=== PATIENT | male | born 1940 | race Caucasian/White ===

== ENCOUNTER → 2017-08-14 | Outpatient (CLI) | payer OTHER | LOC: BMCIMAGING 11:19 | PROVIDERS: ATTEND Internal Medicine Rheumatology | DX: Z13.820 Encounter for screening for osteoporosis (principal); M85.89 Other specified disorders of bone density and structure, multiple sites ==

== ENCOUNTER → 2017-09-10 | Outpatient (CLI) | payer OTHER | LOC: BMCIMAGING 12:41 | PROVIDERS: ATTEND Internal Medicine | DX: M79.604 Pain in right leg (principal); M79.89 Other specified soft tissue disorders ==

== ENCOUNTER → 2017-11-13 | Outpatient (CLI) | payer OTHER | LOC: BMCIMAGING 14:01 | PROVIDERS: ATTEND Family Medicine | DX: M25.521 Pain in right elbow (principal) ==

== ENCOUNTER → 2018-02-11 | Outpatient (CLI) | payer OTHER | LOC: BMCIMAGING 09:47 → EDSTATUS 09:48 | PROVIDERS: ATTEND Orthopaedic Surgery | DX: Z47.1 Aftercare following joint replacement surgery (principal); Z96.651 Presence of right artificial knee joint; M89.8X6 Other specified disorders of bone, lower leg ==

== ENCOUNTER → 2018-03-02 | Outpatient (CLI) | payer OTHER | LOC: FIMAGING 09:25 | PROVIDERS: ATTEND Orthopaedic Surgery | DX: T84.032A Mechanical loosening of internal right knee prosthetic joint, initial encounter (principal); Z96.651 Presence of right artificial knee joint | CPT/HCPCS: 78315; A9503 ==

== ENCOUNTER 2018-04-05 11:28 | Observation (INO) | payer OTHER ==
--- NOTE | 2018-04-05 06:29 | PDIAF ---
- Diagnosis Diagnosis: failed right tka Code Status: Full Code - Medication Management Discharge Medications: Medications to Continue on Transfer Allopurinol [Allopurinol 300 MG (RX)] 300 mg PO DAILY 03/10/18 [Last Taken Unknown] Aspirin [Aspirin 81mg (*)] 81 mg PO DAILY 03/10/18 [Last Taken Unknown] Cholecalciferol Vit D3 [Vitamin D3 (*)] 1,000 units PO DAILY 03/10/18 [Last Taken Unknown] Ibuprofen [Motrin (*)] 200 mg PO DAILY PRN 03/10/18 [Last Taken Unknown] Losartan Potassium 100 mg PO DAILY 03/10/18 [Last Taken Unknown] Metoprolol Succinate Xr [Toprol Xl 100 mg (*)] 100 mg PO DAILY 03/10/18 [Last Taken Unknown] Pantoprazole Sodium [Protonix 40mg (*)] 40 mg PO DAILY 03/10/18 [Last Taken Unknown] Tamsulosin HCl [Flomax 0.4 MG (*)] 0.4 mg PO DAILY 03/10/18 [Last Taken Unknown] metFORMIN HCL [Glucophage 500 mg (*)] 500 mg PO DAILY 03/10/18 [Last Taken Unknown] predniSONE 4 mg PO DAILY 03/10/18 [Last Taken Unknown] Discharge Medications: Refer to the Discharge Home Medication list for PRN reason. - Orders Services needed: Physical Therapy Diet Recommendation: no restrictions on diet Diet Texture: Regular Texture Diet Activity/Weight Bearing Restrictions: wbat. rom as josep. keep dressing. if dressing becomes saturated, change daily. may shower without bandage. f/u at two weeks. seek attn for increasing pain, chest pain, shortness of breath, drainage or other focal complaint - Follow Up Care Current Providers and Referrals: Will Moreau MD [Primary Care Provider] -
--- NOTE | 2018-04-05 06:29 | PDHPUP ---
History & Physical Update H&P update statement: This history and physical update is based on an assessment of the patient which was completed after admission or registration (within 24 hours), but prior to the surgery/procedure. H&P update: no change in patient's condition since H&P completed
[~2018-04-05 11:28] MED LIST: BUPIVACAINE 0.5% 30 ML SDV ONE; NS IV ONE; ROPIVACAINE 0.2% 80 MG, EPINEPHrine 0.2 MG, KETOROLAC TROMETHAMINE 30 MG, morphINE 10 M... IU ONE; TRANEXAMIC ACID IV ONE
[2018-04-05] MEDS ORDERED: FAMOTIDINE 20 MG TAB PO ONE (11:42)
[2018-04-05] MEDS ORDERED: ACETAMINOPHEN 325 MG TAB PO ONE (11:42)
[2018-04-05] MEDS ORDERED: ceFAZolin 2 GM/SWFI 2 GM/20 ML SYR IVP ONE (11:42)
[2018-04-05] MEDS ORDERED: DEXAMETHASONE 4 MG/ML VIAL IVP ONE (11:42)
[2018-04-05] MEDS ORDERED: LR 1,000 ML IV ONE (12:06)
[2018-04-05] MEDS ORDERED: ceFAZolin 1 GM/5 ML SYR ONE ×2 (13:42→13:43)
--- NOTE | 2018-04-05 14:09 | PDANEPAE ---
ANE History of Present Illness RIGHT tka REVISION ANE Past Medical History - Cardiovascular History Hx Hypertension: Yes Hx Arrhythmias: No Hx Chest Pain: No Hx Coronary Artery / Peripheral Vascular Disease: No Hx CHF / Valvular Disease: No Hx Palpitations: No Cardiovascular History Comment: [place] monitors bp medications - Pulmonary History Hx COPD: No Hx Asthma/Reactive Airway Disease: No Hx Recent Upper Respiratory Infection: No Hx Oxygen in Use at Home: No Hx Sleep Apnea: No Sleep Apnea Screening Result - Last Documented: Positive Pulmonary History Comment: [place] triggers - Neurologic History Hx Cerebrovascular Accident: No Hx Seizures: No Hx Dementia: No - Endocrine History Hx Diabetes: Yes Endocrine History Comment: pre-diabetic - Renal History Hx Renal Disorders: Yes Renal History Comment: bph. frequency - Liver History Hx Hepatic Disorders: No - Neurological & Psychiatric Hx Hx Neurological and Psychiatric Disorders: No - Cancer History Hx Cancer: No - Congenital Disorder History Hx Congenital Disorders: No - GI History Hx Gastrointestinal Disorders: Yes Gastrointestinal History Comment: barretts esophagus- controlled with protonix. hx of egd 08/2017 - Other Health History Other Health History: wears glasses/ contacts. psoriasis- well controlled for quite awhile. polymyalgia rheumatica - Chronic Pain History Chronic Pain: Yes (right knee, PMR) - Surgical History Prior Surgeries: 2002 right tka. 2013 hernia repair. 10/2014 selma. hernia repair 1979 or 1980 ANE Review of Systems Review of systems is: negative Review of Systems: - Exercise capacity Exercise capacity: >=4 METS METS (RN): 4 METS ANE Patient History - Allergies Allergies/Adverse Reactions: quinapril [From Accupril] Allergy (Verified 04/05/18 11:51) photosensitive rash x1 2002 - Home Medications Home Medications: Allopurinol [Allopurinol 300 MG (RX)] 300 mg PO DAILY 03/10/18 [Last Taken 04/05 07:00] Aspirin [Aspirin 81mg (*)] 81 mg PO DAILY 03/10/18 [Last Taken Unknown] Cholecalciferol Vit D3 [Vitamin D3 (*)] 1,000 units PO DAILY 03/10/18 [Last Taken 03/29/18] Ibuprofen [Motrin (*)] 200 mg PO DAILY PRN 03/10/18 [Last Taken Unknown] Losartan Potassium 100 mg PO DAILY 03/10/18 [Last Taken 04/04/18] Metoprolol Succinate Xr [Toprol Xl 100 mg (*)] 100 mg PO DAILY 03/10/18 [Last Taken 04/05/18 07:00] Pantoprazole Sodium [Protonix 40mg (*)] 40 mg PO DAILY 03/10/18 [Last Taken 06/16 07:00] Tamsulosin HCl [Flomax 0.4 MG (*)] 0.4 mg PO DAILY 03/10/18 [Last Taken 23:00] metFORMIN HCL [Glucophage 500 mg (*)] 500 mg PO DAILY 03/10/18 [Last Taken 04/03] predniSONE 4 mg PO DAILY 03/10/18 [Last Taken 04/05/18 07:00] - NPO status NPO Status: no food or drink >8 hours NPO Since - Liquids (Date): 04/04/18 NPO Since - Liquids (Time): 04:00 NPO Since - Solids (Date): 04/04/18 NPO Since - Solids (Time): 23:00 - Anes Hx Anes Hx: no prior problems - Smoking Hx Smoking Status: Former smoker - Alcohol Use Alcohol Use: Occasionally (14/WK) - Family Anes Hx Family Anes Hx: none Family Hx Anesthesia Complications: none ANE Labs/Vital Signs - Vital Signs Vital Signs: reviewed preoperatively; see RN documention for details Blood Pressure: 144/97 Heart Rate: 67 Respiratory Rate: 16 O2 Sat (%): 95 Height: 175.26 cm Weight: 76.204 kg ANE Physical Exam - Airway Neck exam: FROM Mallampati Score: Class 2 Mouth exam: normal dental/mouth exam - Pulmonary Pulmonary: no respiratory distress - Cardiovascular Cardiovascular: regular rate and rhythym - ASA Status ASA Status: II ANE Anesthesia Plan Anesthesia Plan: spinal Regional Anesthesia: adductor canal FNB
[2018-04-05] MEDS ORDERED: MIDAZOLAM 2 MG/2 ML VIAL ONE (14:14)
[2018-04-05] MEDS ORDERED: MIDAZOLAM 2 MG/2 ML VIAL IVP ONE (14:19)
[2018-04-05] MEDS ORDERED: PROPOFOL/EMULSION 500 MG/50 ML BOTTLE IV ONE ×2 (14:29→15:49)
[2018-04-05] MEDS ORDERED: LIDOCAINE 2% 5 ML SDV ONE (14:29)
[2018-04-05] MEDS ORDERED: BUPIVACAINE 0.5% 30 ML SDV ONE (14:31)
[2018-04-05] MEDS ORDERED: METOCLOPRAMIDE 10 MG/2 ML VIAL IVP PRN (14:50)
[2018-04-05] MEDS ORDERED: diphenhydrAMINE 25 MG CAP PO PRN (14:50)
[2018-04-05] MEDS ORDERED: BISACODYL 10 MG SUPP PR PRN (14:50)
[2018-04-05] MEDS ORDERED: POLYETHYLENE GLYCOL 3350 17 GM PKT PO PRN (14:50)
[2018-04-05] MEDS ORDERED: TEMAZEPAM 15 MG CAP PO PRN (14:50)
[2018-04-05] MEDS ORDERED: CYCLOBENZAPRINE 10 MG TAB PO PRN (14:50)
[2018-04-05] MEDS ORDERED: ONDANSETRON 4 MG/2 ML VIAL IVP PRN ×2 (14:50→17:40)
[2018-04-05] MEDS ORDERED: PROMETHAZINE HCL 25 MG/ML INJ IVP PRN (14:50)
[2018-04-05] MEDS ORDERED: MAGNESIUM HYDROXIDE 30 ML UDCUP PO PRN (14:50)
[2018-04-05] MEDS ORDERED: oxyCODONE IR 5 MG TAB PO PRN (14:50)
[2018-04-05] MEDS ORDERED: DIPHENOXYLATE/ATROPINE LOMOTIL 1 TAB PO PRN (14:50)
[2018-04-05] MEDS ORDERED: PROMETHAZINE HCL 25 MG SUPPR PR PRN (14:50)
[2018-04-05] MEDS ORDERED: traMADol 50 MG TAB PO PRN (14:50)
[2018-04-05] MEDS ORDERED: LACTULOSE 20 GM/30 ML UDCUP PO PRN (14:50)
[2018-04-05] MEDS ORDERED: ONDANSETRON DISINTEGRATING 4 MG TAB PO PRN (14:50)
[2018-04-05] MEDS ORDERED: CALCIUM CHLORIDE 1 GM/10 ML INJ ONE (14:54)
[2018-04-05] MEDS ORDERED: THROMBIN (BOVINE) 5,000 UNIT VIAL TP ONE (14:54)
[2018-04-05] MEDS ORDERED: LR 1,000 ML IV SCH (15:00)
[2018-04-05] MEDS ORDERED: fentaNYL 100 MCG/2 ML INJ IVP PRN (17:40)
[2018-04-05] MEDS ORDERED: HYDROmorphONE/DILAUDID 2 MG/ML INJ IVP PRN (17:40)
[2018-04-05] MEDS ORDERED: ALBUTEROL 3 ML DEYVIAL IH PRN (17:40)
[2018-04-05] MEDS ORDERED: NALOXONE HCL 0.4 MG/ML INJ IVP PRN (17:40)
[2018-04-05] MEDS: TRANEXAMIC ACID 650 MG TAB PO SCH ×2 (19:35→23:33)
[2018-04-05] MEDS: SENNOSIDES/DOCUSATE SODIUM TAB PO SCH (20:24)
[2018-04-05] MEDS: ASPIRIN 325 MG TAB PO SCH (20:24)
[2018-04-05] MEDS: ACETAMINOPHEN 325 MG TAB PO SCH ×2 (20:37→23:33)
[2018-04-05] MEDS ORDERED: FAMOTIDINE 20 MG TAB PO SCH (21:00)
[2018-04-05] MEDS ORDERED: ceFAZolin 2 GM/DEXTROSE 100 ML IV SCH (22:00)
[2018-04-05] MEDS: ceFAZolin 2 GM/SWFI 2 GM/20 ML SYR IVP SCH (23:33)
[2018-04-06] MEDS: ACETAMINOPHEN 325 MG TAB PO SCH (06:09)
[2018-04-06] MEDS: TRANEXAMIC ACID 650 MG TAB PO SCH (06:09)
[2018-04-06] MEDS: ceFAZolin 2 GM/SWFI 2 GM/20 ML SYR IVP SCH (06:19)
--- NOTE | 2018-04-06 07:00 | PDIAF ---
- Diagnosis Diagnosis: failed right tka Code Status: Full Code - Medication Management Discharge Medications: Medications to Continue on Transfer Allopurinol [Allopurinol 300 MG (RX)] 300 mg PO DAILY 03/10/18 [Last Taken 04/05 07:00] Aspirin [Aspirin 81mg (*)] 81 mg PO DAILY 03/10/18 [Last Taken Unknown] Cholecalciferol Vit D3 [Vitamin D3 (*)] 1,000 units PO DAILY 03/10/18 [Last Taken 03/29/18] Ibuprofen [Motrin (*)] 200 mg PO DAILY PRN 03/10/18 [Last Taken Unknown] Losartan Potassium 100 mg PO DAILY 03/10/18 [Last Taken 04/04/18] Metoprolol Succinate Xr [Toprol Xl 100 mg (*)] 100 mg PO DAILY 03/10/18 [Last Taken 04/05/18 07:00] Pantoprazole Sodium [Protonix 40mg (*)] 40 mg PO DAILY 03/10/18 [Last Taken 06/16 07:00] Tamsulosin HCl [Flomax 0.4 MG (*)] 0.4 mg PO DAILY 03/10/18 [Last Taken 23:00] metFORMIN HCL [Glucophage 500 mg (*)] 500 mg PO DAILY 03/10/18 [Last Taken 04/03] predniSONE 4 mg PO DAILY 03/10/18 [Last Taken 04/05/18 07:00] Aspirin [Aspirin 325 mg (*)] 325 mg PO DAILY tab 04/06/18 [Last Taken Unknown] oxyCODONE IR [Oxycodone Ir (*)] 5 - 10 mg PO Q3HRS PRN #60 tab 04/06/18 [Last Taken Unknown] Discharge Medications: Refer to the Discharge Home Medication list for PRN reason. - Orders Services needed: Physical Therapy Diet Recommendation: no restrictions on diet Diet Texture: Regular Texture Diet Activity/Weight Bearing Restrictions: wbat. rom as josep. keep dressing. if dressing becomes saturated, change daily. may shower without bandage. f/u at two weeks. seek attn for increasing pain, chest pain, shortness of breath, drainage or other focal complaint Additional Instructions: wbat rom as josep keep dressing if dressing becomes saturated, change daily may shower without bandage f/u at two weeks seek attn for increasing pain, chest pain, shortness of breath, drainage or other focal complaint TOTAL JOINT ARTHROPLASTY DISCHARGE INSTRUCTIONS 1. Your surgeon follows the [facility] protocol for reducing your risk of DVT (blood clots) following surgery. Medication will be ordered to prevent blood clots. A sudden increase in calf pain and/or swelling could indicate a blood clot in your leg. If this occurs, please call your surgeon or his/her parking assistant. An ultrasound of the leg may be necessary to diagnose a blood clot. If you have conditions that make you a higher risk for blood clots, your surgeon may use more aggressive ways to prevent them. Notify your surgeon if you think you are a high risk for blood clots. 2. Wear your white surgical stockings (KALA hose) for 2 weeks. This decreases your swelling and may help prevent blood clots. It is ok to remove KALA hose at night time to give your legs a break. 3. Swelling and bruising in the surgical leg is common. If you feel that it is excessive, please notify your surgeon. 4. Elevate your surgical leg with the ankle above the hip several times every day. Please keep the leg straight when you elevate by putting pillows under your foot. Do not put pillows under your knee. This will make being able to fully straighten more difficult. This is uncomfortable, but try to do it as much as possible. 5. For total knee replacements use compressive wrap on your knee for 3-5 days after surgery, then you can discontinue it. 6. Use a walker or crutches for 1-2 weeks. Progress your weight-bearing as tolerated. You may start to use a cane when you feel stable and safe. 7. You will receive physical therapy instructions in the hospital. Continue those exercises at home. There are additional exercises in the total joint booklet you were given before surgery. Outpatient physical therapy will begin 7- 10 days after surgery. Please schedule this in advance. 8. Use ice on your knee at least 3-5 times every day for 30 minutes. This helps reduce pain and swelling. Also use it at night before falling asleep. 9. Leave your surgical dressing in place for 2 weeks. Your dressing is water resistant, but not waterproof. Cover it with Saran Wrap or [id number] before showering. You may shower as soon as you feel safe entering a shower. If you notice bleeding from your incision 2 or 3 days after surgery, please notify your surgeon. 10. Due to narcotics, decreased activity and altered diet, most patients experience constipation after surgery. Use [id number] stool softeners while you are on narcotics. 11. You may drive a car when you are comfortable bearing weight, have good muscular control of your leg and are off narcotics. This usually occurs 2-4 weeks after surgery, depending on which leg was operated on. 12. If there are questions not addressed here, please refer the [facility] book given for more information. If you still have questions, please contact your surgeon s office. 13. If you have a life-threatening emergency, please call 911 and go to the emergency room immediately. For non-life threatening emergencies, please call your physicians office for advice before going to the emergency room. - Follow Up Care Current Providers and Referrals: Will Moreau MD [Primary Care Provider] - Jani Hunter MD [Medical Doctor] -
--- NOTE | 2018-04-06 07:13 | GDS ---
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 POSTOPERATIVE DIAGNOSIS: Failed right total knee arthroplasty. PROCEDURE: Revision arthroplasty right total knee of both components. HISTORY OF PRESENT ILLNESS: The patient is a 77-year-old gentleman who is 15 years out from a total knee replacement by Dr. Tineo. He has developed progressive lucency and pain across his right knee. Evaluation was undertaken for loosening and possible infection. This was consistent with loosening across the component. Given the persistent nature of his symptoms and radiographic support, I recomm ended revision of his knee. He understood the risks, benefits, alternatives, and wished to proceed. Written consent was signed and placed in patient's chart. HOSPITAL COURSE: Patient was admitted to the hospital floor after uncomplicated total knee arthropla sty revision. He tolerated the procedure well. Overnight he had no complications. At the time of d ischarge, he is tolerating an oral diet. Pain is well controlled on oral medicines. He is voiding w ithout difficulty. Dressing is clean, dry, and intact. He has intact sensation grossly throughout b oth lower extremities. Negative calf swelling or tenderness. Negative Danny's bilaterally. X-rays demonstrate stable alignment with slight varus across the proximal tibial component. The joint space is symmetrical. The cement mantle has filled the proximal tibia. DISCHARGE ACTIVITY: He is weightbearing as tolerated. Range of motion as tolerated. Daily dressing changes. May shower without the bandage. No soaking or immersion. FOLLOWUP: At 2 weeks. DISCHARGE MEDICATIONS: Oxycodone 5 mg 1-2 every 4 hours p.r.n. pain and aspirin 325 mg p.o. daily. DISCHARGE INSTRUCTIONS: Follow up in 2 weeks. Seek attention for increasing redness, swelling, drai nage, discharge, or other focal complaints. /[id number]/MODL
[2018-04-06] MEDS: SENNOSIDES/DOCUSATE SODIUM TAB PO SCH (08:03)
[2018-04-06] MEDS: ASPIRIN 325 MG TAB PO SCH (08:04)
[2018-04-06] MEDS ORDERED: PANTOPRAZOLE SODIUM 40 MG TAB PO SCH (09:00)
[2018-04-06] MEDS ORDERED: predniSONE 1 MG TAB PO SCH (09:00)
[2018-04-06] MEDS ORDERED: TAMSULOSIN HCL 0.4 MG CAP PO SCH (09:00)
[2018-04-06] MEDS ORDERED: ALLOPURINOL 300 MG TAB PO SCH (09:00)
[2018-04-06] MEDS ORDERED: NON-FORMULARY NEW DRUG (Losartan Potassium [Losartan Potassium] 100 MG) PO SCH (09:00)
[2018-04-06] MEDS ORDERED: metFORMIN HCL 500 MG TAB PO SCH (09:00)
[2018-04-06] MEDS ORDERED: METOPROLOL SUCCINATE XR 100 MG TAB PO SCH (09:00)
[2018-04-06] MEDS ORDERED: LOSARTAN POTASSIUM 50 MG TAB PO SCH (09:00)
[2018-04-06 11:53] VITALS: BP 108/63
--- NOTE | 2018-04-06 12:23 | ASMTCMCOM ---
CM Note CM Note Notes: Pt medically stable for d/c with [facility] PT and support. Pt address/phone verified. Orders to be obtained via [employer]. Date Signed: 04/06/2018 12:23 PM Electronically Signed By:SOFIE Zimmer
--- NOTE | 2018-04-06 13:44 | ASDISCHSUM ---
Discharge Information Plan Status:Home with Home Health Medically Cleared to Leave: Discharge Date:04/06/2018 12:20 PM CM D/C Disposition:Home Health Service ADT D/C Disposition:Home Health Service Projected Discharge Date:04/06/2018 11:00 AM Transportation at D/C: Discharge Delay Reason: Follow-Up Date:04/06/2018 11:00 AM Discharge Slot: Final Diagnosis: Placement Information Referral Type:*Home Health Care Services Referral ID:[id number] Provider Name:[facility] [address] Address 2: City:[place] Selection Factors: State:[place] Patient Contact Information Contact Name:OMAYRABALWINDER Relationship: Address:[address] City:[place] Alternate Phone: State/Zip Code:[place] [address] Email: Financial Information Financial Class:Medicare Advantage Plans Primary Plan Desc:[employer] MEDICARE Primary Plan Number:[id number] Secondary Plan Desc: Secondary Plan Number: Assessment Information [facility] CM Progress Note CM Note CM Note Notes: Pt medically stable for d/c with [facility] PT and support. Pt address/phone verified. Orders to be obtained via [employer]. Date Signed: 04/06/2018 12:23 PM Electronically Signed By:SOFIE Zimmer Intervention Information
--- NOTE | 2018-04-07 07:55 | GOP ---
[f rep st] OPERATIVE REPORT DATE OF OPERATION: 04/05/2018 SURGEON: Jani Hunter MD SETTER [employer]MENT: Immanuel Duval, EMPLOYEE BENEFITS MANAGER, [employer], [place]. PREOPERATIVE DIAGNOSIS: Failed right total knee arthroplasty. POSTOPERATIVE DIAGNOSIS: Failed right total knee arthroplasty. PROCEDURE PERFORMED: Right total knee arthroplasty revision of femoral and tibial component hardware removal and excision of bone cyst, tibia. FINDINGS: SPECIMENS: Pathology as above. ESTIMATED BLOOD LOSS: 250 cc. INDICATIONS: Homer Perry is a 77-year-old gentleman who is now 15 years out from a total knee replac ement to his right knee. He has developed increasing pain and disability in regard to his right knee . Clinical and radiographic features are consistent with loosening and progressive cyst formation ov er the proximal tibia given he had a bone scan which was positive for loosening and workup which was negative for infection. Given the persistent nature of his symptoms, clinical and radiographic featu res, I recommended revision arthroplasty. I outlined surgical procedure, risks, benefits, and alterna tives at length. He wished to proceed. Written consent was signed and placed in the patient's chart . DESCRIPTION OF PROCEDURE: The patient was identified in the preanesthesia area. The right knee was clearly demarcated as the operative site with indelible marker. He was not given any preoperative an tibiotics. We planned intraoperative cultures and frozen specimen to Pathology. In the operating ro om, a spinal anesthetic was placed. He was positioned in the supine position. All bony prominences were well padded. The right lower extremity was sterilely prepped and draped in the usual fashion. A tourniquet had been applied to the upper thigh. Appropriate time-out procedure was carried out. T he limb was exsanguinated with an Esmarch bandage. Tourniquet inflated to 275 mmHg. Previous anteri or incision was opened in entirety and carried sharply through the skin and subcutaneous tissue. The medial parapatellar arthrotomy was opened sharply and all suture remnants were withdrawn. Subperiost eal dissection was carried out to the mid coronal plane and retractors placed. The knee was brought to a flexed position. There was inflamed synovium with a jay synovial proliferation present througho ut the knee. This was debrided in an extensive fashion and specimens were sent for pathological anal ysis. The polyethylene spacer was grossly loose between the femoral and tibial components and this w as withdrawn without difficulty. The tibia was gently elevated with an osteotome and was grossly loo se as well. There were several cement fragments inferior to this which were debrided as well to a cl stephanie and stable bony edge. The femoral component was removed with a flexible osteotome. This was not grossly loose but easily freed after use of the flexible osteotome and minimal bone loss was attained . Tissue was sent from the backside of the tibial component for Gram stain, culture, and analysis. This returned intraoperatively with no evidence of acute inflammation but acellular proliferative pro cess evaluation within the tibia revealed a large cystic cavity. This was curetted and irrigated copi ously. The soft tissue was jay and brown, and was sent for pathological analysis. The tibia was helicopter officer iously irrigated. The femoral component was copiously irrigated as well. Reamers were then placed d own the tibia for the alignment villa. The proximal tibial cut was then made off a drop villa within the tibia and freshened to a clean and stable surface. The tibial tray, size 5, was then placed over a st em and impacted into the appropriate position. Attention was then turned to the femur. Given the mi nimal bone loss, the instrumentation was used for a primary femoral component. An intramedullary villa was then placed followed by affixing the distal cutting block. The distal cut was then freshened an d made followed by the distal cutting block being affixed, and the anterior posterior chamfer cuts we re then made for a size 4 femoral component. Trial reduction was carried out and a size 22 thickness polyethylene spacer was selected. Given the large spacer, the decision was made to use a tibial bloc k to decrease the polyethylene height. A size 4 femoral component was selected, a size 5 tibial tray with a short 50 mm stem length, as well as a 5 mm augmentation for the posterior aspect of the tibial block was selected. The surfaces were thoroughly cleansed and dried. The patella was cut free and was grossly loose. There was atrophic bone across the posterior aspect of the patella. Surrounding s oft tissue was gently debrided. Drill holes were made for a size 38 mm asymmetric patella and all estrada rfaces were thoroughly cleansed and dried. In a sequential fashion, the tibial, femoral and patellar components were cemented. The tibia was cemented heavily with a cement restrictor in the proximal t ibial canal given the cystic cavity. All marginal cement was withdrawn. The knee was reduced over a 1 9 mm x 5 mm polyethylene spacer that had been impacted and confirmed to be fully seated. Once the ce ment had fully cured, the knee was taken through a full range of motion which allowed full extension and flexion at 120 degrees without instability with varus valgus stress through the flexion-extension arc. The wound was copiously irrigated. A central stabilizing PEG was placed into the polyethylene spacer. The medial parapatellar arthrotomy closed using #1 Ethibond suture with the knee bent 15 deg eran. The deep tissue injected with a platelet-rich plasma. The capsule injected with a joint cockt ail of ropivacaine, morphine, Toradol, and epinephrine. Subcutaneous tissue closed using 2-0 Monocry l and the skin was stapled. A sterile dressing was applied. The patient was awakened, extubated and taken to the recovery room in good stable condition. TOTAL TOURNIQUET TIME: 1 hour 19 minutes. COMPLICATIONS: None. IMPLANTS: A Triathlon posterior stabilized femoral component size 4 X3, asymmetric patella, size A38 , a tibial base plate, size 5 with a 5 mm posterior augment, a cemented stem 12 x 50 mm in length and X3 total stabilizer insert 5 x 19 mm thick. DISPOSITION: To the recovery room, then the floor. He is weightbearing range of motion as tolerated . /[id number]/MODL
== END 2018-04-06 12:20 | disposition home health service (06) ==
LOC: F3N 11:28 → INTOOBSV 11:28 → F3N 19:17
PROVIDERS: ADMIT Orthopaedic Surgery; ATTEND Orthopaedic Surgery
DX: T84.032A Mechanical loosening of internal right knee prosthetic joint, initial encounter (principal); M25.561 Pain in right knee; Y79.2 Prosthetic and other implants, materials and accessory orthopedic devices associated with adverse incidents; E11.9 Type 2 diabetes mellitus without complications; I10 Essential (primary) hypertension; M35.3 Polymyalgia rheumatica; M10.9 Gout, unspecified; N40.1 Benign prostatic hyperplasia with lower urinary tract symptoms; Z87.891 Personal history of nicotine dependence
CPT/HCPCS: 27487; 73560; 97116; 97161; 97166; 97535; C1713; C1776; G0378; J0171; J0690; J1100; J1885; J2250; J2270; J2704; J2795; J7512

== ENCOUNTER → 2018-05-18 | Outpatient (CLI) | payer OTHER | LOC: FIMAGING 15:32 | PROVIDERS: ATTEND Orthopaedic Surgery | DX: M79.89 Other specified soft tissue disorders (principal); Z96.651 Presence of right artificial knee joint ==

== ENCOUNTER → 2018-05-18 | Outpatient (CLI) | payer OTHER | LOC: BMCIMAGING 14:03 | PROVIDERS: ATTEND Orthopaedic Surgery | DX: Z47.1 Aftercare following joint replacement surgery (principal); Z96.651 Presence of right artificial knee joint ==

== ENCOUNTER → 2018-09-27 | Outpatient (CLI) | payer OTHER | LOC: BMCIMAGING 13:16 | PROVIDERS: ATTEND Orthopaedic Surgery | DX: Z47.1 Aftercare following joint replacement surgery (principal); Z96.651 Presence of right artificial knee joint ==

== ENCOUNTER → 2018-09-30 | Outpatient (CLI) | payer OTHER | LOC: FIMAGING 09:19 | PROVIDERS: ATTEND Orthopaedic Surgery | DX: M25.561 Pain in right knee (principal); Z96.651 Presence of right artificial knee joint; R93.7 Abnormal findings on diagnostic imaging of other parts of musculoskeletal system | CPT/HCPCS: 78315; A9503 ==

== ENCOUNTER 2018-11-13 22:46 | Inpatient (IN) | payer OTHER ==
[2018-11-13] MEDS ORDERED: NITROGLYCERIN 0.4 MG BTL SL PRN (22:53)
[2018-11-13] MEDS ORDERED: NS 1,000 ML IV ONE (22:53)
--- NOTE | 2018-11-13 22:57 | EDPHY ---
H & P Time Seen by Provider: 11/13/18 22:54 HPI/ROS: HPI CHIEF COMPLAINT: Chest pain HISTORY OF PRESENT ILLNESS: 78-year-old male, history of hypertension, diabetes , however no history of cardiovascular disease, presents emergency room by EMS for chest pain. Patient states that he ate dinner around 530 in [place], finished dinner around 730 and drove back to [place] as he coming through [place] he developed some substernal chest discomfort that he thought was initially heartburn however it got rather intense and rather severe. No nausea no diaphoresis no back pain or jaw pain or arm pain. However the pain became rather severe when he got home was not going away had worsening pain became concerned called 911. EMS evaluated him give him full-dose aspirin prior to arrival. As well as 2 doses of nitroglycerin which now has caused his pain from 08/09 to 01/09. No cough. No fever. No diaphoresis No vomiting No shortness of breath Past Medical History: Hypertension, diabetes Past Surgical History: Orthopedic surgeries Social History: Denies drugs alcohol tobacco. Family History: Noncontributory ROS REVIEW OF SYSTEMS: 10 Systems were reviewed and negative with the exception of the elements mentioned in the history of present illness. Exam Constitutional elderly, nontoxic triage nursing summary reviewed, vital signs reviewed, awake/alert. Eyes normal conjunctivae and sclera, EOMI, PERRLA. HENT normal inspection, atraumatic, moist mucus membranes, no epistaxis, neck supple/ no meningismus, no raccoon eyes. Respiratory clear to auscultation bilaterally, normal breath sounds, no respiratory distress, no wheezing. Cardiovascular rate normal, regular rhythm, no murmur, no edema, distal pulses normal. Gastrointestinal soft, non-tender, no rebound, no guarding, normal bowel sounds, no distension, no pulsatile mass. Genitourinary no CVA tenderness. Musculoskeletal no midline vertebral tenderness, full range of motion, no calf swelling, no tenderness of extremities, no meningismus, good pulses, neurovascularly intact. Skin pink, warm, & dry, no rash, skin atraumatic. Neurologic awake, alert and oriented x 3, AAOx3, moves all 4 extremities equally, motor intact, sensory intact, CN II-XII intact, normal cerebellar, normal vision, normal speech. Psychiatric normal mood/affect. Heme/Lymph/Immune no lymphadenopathy. Differential diagnosis includes but is not limited to: ACS, atypical chest pain , pneumothorax, pneumonia, pulmonary embolism, aortic dissection, congestive heart failure, tumor, musculoskeletal pain, esophageal pain, GERD, peptic ulcer disease, pancreatitis Medical Decision Making: Plan for this patient IV establishment with IV fluid bolus, already see full-dose aspirin, 1 more dose of nitroglycerin, chest x-ray , blood work, troponin, EKG, rule out acute coronary syndrome. Re-evaluation: EKG interpretation by me on record in [facility] system. Impression time of EKG 2252, sinus rhythm rate of 77 I do not appreciate acute ischemia. [place] interval 211. I do not appreciate acute ischemia on this EKG. Cardiovascular risk factors includes age, hypertension, diabetes 11:33 p.m.. Nursing staff notified me that the patient has a return of chest pain. His chest pain did almost completely resolve after 3 nitro. Will repeat his EKG Will give him a GI cocktail to see if this improves. EKG interpretation by me on record in [facility] system. Impression time of EKG 2331, sinus rhythm rate of 74, [place] interval 222 I do not appreciate acute ischemia. Q-waves inferior leads. Similar to previous EKG. T-wave flattening in lead 3 and AVF. Patient's troponin 0.04. Patient D-dimer elevated. Given the chest pain, age, elevated D-dimer will proceed with CT angiogram of the chest. CT angiogram of the chest shows no evidence of PE. Coronary artery disease visualized. Pulmonary lung nodule visualized. Patient re-evaluated 12:54 a.m.. Chest pain improved. He states the GI cocktail did not really help him. Repeat troponin pending Repeat EKG time at 12:48 a.m., sinus rhythm rate of 60, [place] interval 216, without any signs of acute ischemia and unchanged from previous EKG. Patient's 2nd troponin 0.11. Initial troponin 0.04. Patient has had stuttering chest pain in the emergency room. The patient has serial EKGs his initial EKG was 2252, 2nd EKG 2331, 3rd EKG 0048. No dynamic changes. No ST elevation. Plan for patient's stuttering chest pain here in emergency room, and elevated troponin he will be started on heparin drip per ACS protocol. Mainly nitroglycerin drip. Will consult Cardiology. 0115: Spoke with Dr. Bourgeois, discussed case in detail, serial EKGs, serial troponins, agrees with heparin drip agrees with nitroglycerin drip admit for NSTEMI. 0159: Patient getting heparin and nitroglycerin drip. Chest pain-free at this time. Patient admitted the hospitalist service Dr. Wolfe. Critical Care: Total Critical Care Time Spent Managing this Patient: 65Minutes. This time was spent Exclusively with this patient. This Care was exclusive of procedures. The Organ System/life at risk was non-STEMI. Elevated troponin. Chest pain. This Patient was in Critical Condition because critical care due to non STEMI. Source: Patient, Family, EMS - Medical/Surgical History Hx Asthma: No Hx Chronic Respiratory Disease: No Hx Diabetes: Yes Hx Cardiac Disease: No Hx Renal Disease: No Hx Cirrhosis: No Hx Alcoholism: No Hx HIV/AIDS: No Hx Splenectomy or Spleen Trauma: No Other PMH: HTN, RTK 15 years ago, PMR, Lambert's esophagus - Social History Smoking Status: Former smoker Constitutional: Initial Vital Signs Temperature (C) 36.6 C 11/13/18 22:48 Heart Rate 80 11/13/18 22:48 Respiratory Rate 16 11/13/18 22:48 Blood Pressure 148/90 H 11/13/18 22:48 O2 Sat (%) 98 11/13/18 22:48 O2 Delivery Mode Room Air O2 (L/minute) 2 Allergies/Adverse Reactions: quinapril Allergy (Unknown, Verified 11/14/18 01:04) photosensitive rash x1 2003 Home Medications: Medication Instructions Recorded Allopurinol [Allopurinol 300 MG 300 mg PO DAILY 03/10/18 (RX)] Aspirin [Aspirin 81mg (*)] 81 mg PO DAILY 03/10/18 Cholecalciferol Vit D3 [Vitamin D3 1,000 units PO DAILY 03/10/18 (*)] Ibuprofen [Motrin (*)] 200 mg PO DAILY PRN 03/10/18 Losartan Potassium 100 mg PO DAILY 03/10/18 Metoprolol Succinate Xr [Toprol Xl 100 mg PO DAILY 03/10/18 100 mg (*)] Pantoprazole Sodium [Protonix 40mg 40 mg PO DAILY 03/10/18 (*)] Tamsulosin HCl [Flomax 0.4 MG (*)] 0.4 mg PO DAILY 03/10/18 metFORMIN HCL [Glucophage 500 mg 500 mg PO DAILY 03/10/18 (*)] Medical Decision Making - Data Points Laboratory Results: Laboratory Results 11/13/18 23:00 11/13/18 23:00 Medications Given: Sodium Chloride (Ns) 1,000 mls @ 75 mls/hr IV CONT DARRICK Stop: 05/13/19 02:14 Last Admin: 11/14/18 03:10 Dose: 1,000 mls Morphine Sulfate (Morphine) 1 - 2 mg IVP Q1HR PRN PRN Reason: Pain, Breakthrough Stop: 11/24/18 02:10 Last Admin: 11/14/18 13:07 Dose: 2 mg Nitroglycerin (Nitrostat) 0.4 mg SL Q5M PRN PRN Reason: Chest Pain Last Admin: 11/13/18 22:58 Dose: 0.4 mg Ondansetron HCl (Zofran Odt) 4 mg PO Q4HRS PRN PRN Reason: Nausea/Vomiting, Use 1st Stop: 05/13/19 02:10 Last Admin: 11/14/18 22:11 Dose: 4 mg Discontinued Medications Al Hydroxide/Mg Hydroxide (Maalox Susp) 30 ml PO ONCE ONE Stop: 11/13/18 23:34 Last Admin: 11/13/18 23:36 Dose: 30 ml Clopidogrel Bisulfate (Plavix) 600 mg PO ONCE ONE Stop: 11/14/18 12:28 Last Admin: 11/14/18 13:46 Dose: Not Given Heparin Sodium (Porcine) (Heparin Injection) 0 unit IVP EDNOW ONE Stop: 11/14/18 01:05 Last Admin: 11/14/18 01:35 Dose: 4,000 units Hyoscyamine Sulfate (Levsin, Hyomax-Sl) 0.25 mg PO ONCE ONE Stop: 11/13/18 23:34 Last Admin: 11/13/18 23:36 Dose: 0.25 mg Sodium Chloride (Ns) 1,000 mls @ 0 mls/hr IV EDNOW ONE; Wide Open PRN Reason: Protocol Stop: 11/13/18 22:54 Last Admin: 11/13/18 22:58 Dose: 1,000 mls Heparin Sodium (Porcine) (Heparin 50 Units/Ml (Premix)) 500 mls @ 0 mls/hr IV EDNOW ONE; Per Protocol PRN Reason: Protocol Stop: 11/14/18 01:05 Last Admin: 11/14/18 01:36 Dose: 500 mls Lidocaine (Lidocaine 2% Viscous) 15 ml PO ONCE ONE Stop: 11/13/18 23:34 Last Admin: 11/13/18 23:36 Dose: 15 ml Morphine Sulfate (Morphine) 4 mg IVP EDNOW ONE Stop: 11/14/18 00:59 Last Admin: 11/14/18 01:04 Dose: 4 mg Ondansetron HCl (Zofran) 4 mg IVP EDNOW ONE Stop: 11/14/18 00:59 Last Admin: 11/14/18 01:04 Dose: 4 mg Point of Care Test Results: Chemistry 11/14/18 11/13/18 00:51 23:02 POC Troponin I 0.11 ng/mL H ng/mL 0.04 ng/mL ng/mL (0.00-0.08) (0.00-0.08) Departure - Departure Disposition: [facility] Inpatient Acute Clinical Impression: NSTEMI (non-ST elevation myocardial infarction) Chest pain Qualifiers: Chest pain type: unspecified Qualified Code(s): R07.9 - Chest pain, unspecified Condition: Fair
[2018-11-13 23:06] LABS: PLATELET COUNT 199 10^3/uL (150-400)
[2018-11-13 23:29] LABS: INR 0.91 (0.83-1.16); PROTIME(PATIENT) 12.5 SEC (12.0-15.0)
[2018-11-13] MEDS ORDERED: LIDOCAINE 2% VISCOUS 15 ML UDCUP PO ONE (23:33)
[2018-11-13] MEDS ORDERED: MAG HYDROX/AL HYDROX/SIMETH 30 ML UDCUP PO ONE (23:33)
[2018-11-13] MEDS ORDERED: HYOSCYAMINE SULFATE 0.125 MG TAB PO ONE (23:33)
[2018-11-13] MEDS ORDERED: IOPAMIDOL (ISOVUE 370) 100 ML BTL IV ONE (23:46)
[2018-11-14] MEDS ORDERED: ONDANSETRON 4 MG/2 ML VIAL IVP ONE (00:58)
[2018-11-14] MEDS ORDERED: HEPARIN/DEXTROSE 500 ML IV ONE (01:04)
[2018-11-14] MEDS ORDERED: HEPARIN 10,000 UNIT/10 ML MDV (1,000 UNIT/ML) IVP ONE (01:04)
[2018-11-14] MEDS ORDERED: NITROGLYCERIN/DEXTROSE 250 ML IV SCH ×2 (01:30→02:30)
[2018-11-14] MEDS ORDERED: ONDANSETRON DISINTEGRATING 4 MG TAB PO PRN (02:11)
[2018-11-14] MEDS ORDERED: ACETAMINOPHEN 325 MG TAB PO PRN (02:11)
[2018-11-14] MEDS ORDERED: LORazepam 2 MG/ML INJ IVP PRN (02:11)
[2018-11-14] MEDS ORDERED: HYDROCODONE/APAP 5/325 TAB PO PRN (02:11)
[2018-11-14] MEDS ORDERED: ONDANSETRON 4 MG/2 ML VIAL IVP PRN (02:11)
[2018-11-14] MEDS ORDERED: HEPARIN 10,000 UNIT/10 ML MDV (1,000 UNIT/ML) IVP PRN (02:14)
[2018-11-14] MEDS ORDERED: NS 1,000 ML IV SCH (02:15)
[2018-11-14] MEDS ORDERED: HEPARIN/DEXTROSE 500 ML IV SCH (02:15)
--- NOTE | 2018-11-14 07:11 | CPEKG ---
Test Reason : OPEN Blood Pressure : / mmHG Vent. Rate : 077 BPM Atrial Rate : 077 BPM P-R Int : 211 ms QRS Dur : 084 ms QT Int : 388 ms P-R-T Axes : 056 006 026 degrees QTc Int : 440 ms Sinus rhythm Confirmed by Hernando Prado ([id number]) on 11/14/2018 7:10:32 AM Referred By: Confirmed By:Hernando Prado
--- NOTE | 2018-11-14 07:11 | CPEKG ---
Test Reason : OPEN Blood Pressure : / mmHG Vent. Rate : 060 BPM Atrial Rate : 060 BPM P-R Int : 216 ms QRS Dur : 092 ms QT Int : 427 ms P-R-T Axes : 029 -01 021 degrees QTc Int : 427 ms Sinus rhythm Borderline prolonged [place] interval Inferior infarct, old Confirmed by Hernando Prado ([id number]) on 11/14/2018 7:10:33 AM Referred By: Confirmed By:Hernando Prado
--- NOTE | 2018-11-14 07:11 | CPEKG ---
Test Reason : OPEN Blood Pressure : / mmHG Vent. Rate : 074 BPM Atrial Rate : 074 BPM P-R Int : 222 ms QRS Dur : 091 ms QT Int : 402 ms P-R-T Axes : 018 -16 -02 degrees QTc Int : 446 ms Sinus rhythm Prolonged VT interval Inferior infarct, old Confirmed by Hernando Prado ([id number]) on 11/14/2018 7:10:32 AM Referred By: Confirmed By:Hernando Prado
--- NOTE | 2018-11-14 07:48 | GHP ---
DATE OF ADMISSION: 11/14/2018 PRIMARY CARE PHYSICIAN: Will Moreau. SOURCE: Patient provides history, appears reliable. at bedside and supplements details. EMR w as reviewed and case discussed with ED provider. CHIEF COMPLAINT: Chest pain. HISTORY OF PRESENT ILLNESS: This is a very pleasant 78-year-old gentleman with past medical history significant for HTN, DM2 controlled, Lambert's esophagus, polymyalgia rheumatica previously on chroni c steroids discontinued Fall 2017, BPH, osteoarthritis, gout, chronic pain who presents to the emerge ncy department today with complaints of substernal chest pain. Patient reports approximately 7:30 he was en route back from a dinner libertarian in [place]. He was driving when he started to develo p a chest-burning sensation. This pain was located substernal, intermittent, and it felt more like h eartburn. Patient got home, he and his were sitting down to watch television. He was not able to get comfortable and he had a significant severe increase in intensity of his chest pain. He denie d any associated nausea, vomiting, diaphoresis. Chest pain did not radiate to his jaw or arm. He de nies any associated shortness of breath. He just felt very fatigued and unwell. Given the intensity of his chest discomfort, the patient asked his to call 9-1-1. They advised her to give him a 3 25 mg dose of aspirin which he did take prior to arrival in the emergency department. The patient di d not have any acute ST elevations. He was brought to the emergency department and given 2 doses of sublingual nitroglycerin with nearly resolution of his chest pain. During his stay in the emergency department, patient's chest pain did return. Additionally, patient had a second troponin that was no rmal and mildly elevated. The patient was started on a heparin drip and a nitroglycerin drip. He ramos s had resolution of his chest pain but continues to feel quite fatigued. REVIEW OF SYSTEMS: Ten systems reviewed and negative except as noted above. ALLERGIES: Accupril, patient develops a rash. He tolerates ARB's. HOME MEDICATIONS: As per EMR: 1. Oxy IR 5-10 mg p.o. q.3 hours p.r.n. pain. 2. Metformin 500 mg p.o. daily. 3. Tamsulosin 0.4 mg p.o. daily. 4. Protonix 40 mg p.o. daily. 5. Metoprolol XR 100 mg p.o. daily. 6. Losartan 100 mg p.o. daily. 7. Ibuprofen 200 mg p.o. daily p.r.n. 8. Vitamin D3 1000 units p.o. daily. 9. Aspirin 81 mg p.o. daily. 10. Allopurinol 300 mg p.o. daily. PAST MEDICAL HISTORY: Significant for chronic pain related to polymyalgia rheumatica, osteoarthritis , gout, diabetes type 2, Lambert's esophagus, benign essential HTN, BPH. Patient previously on chron ic steroids for his polymyalgia rheumatica which was discontinued in fall. PAST SURGICAL HISTORY: Patient with history of right total knee arthroplasty. He did undergo revisi on on 04/18/2018. In 2013, lap selma; and, also in the fall, patient underwent Phill fundop lication lap. FAMILY HISTORY: Mother with history of angina and CAD that did not have a stent or undergo catheteri zation or CABG. SOCIAL HISTORY: Patient is , lives with his . He quit smoking in 1968. He drinks 3 glas ses of wine on a daily basis. He does not use any illicit drugs or marijuana. CODE STATUS: Full. PHYSICAL EXAMINATION: VITAL SIGNS: Upon arrival to the emergency department, initially blood pressu re 148/90, heart rate 80, respiratory rate 16, O2 saturation 98% on room air, temperature 36.6. Jacque ls, currently available, blood pressure is 132/77, heart rate is 57, respiratory rate 17, O2 saturati on 97% on room air with temperature 37.8. GENERAL: No acute distress, very pleasant elderly gentlem an is lying quietly in bed. He does appear fatigued. His is at bedside. HEAD: Normocephalic, atraumatic. EYES: Extraocular muscles grossly intact. Pupils equal, round, decreased reactivity t o light bilaterally and symmetric. No scleral icterus conjunctival injection. ENT: Mucous membrane s appear slightly dry. No oropharyngeal erythema or exudates. Dentition intact. No nasal discharge . NECK: Supple. Trachea midline. CV: Bradycardic, regular rhythm. No murmurs, rubs, or gallops appreciated. RESPIRATORY: Unlabored breathing. Diminished breath sounds bibasilarly but, otherwise , clear. No wheezes, rales, or rhonchi appreciated. ABDOMEN: Distended, soft. Positive bowel soun ds. Patient with minimal amount of tenderness to the epigastric region. No rebound, guarding, or ma sses appreciated. : No suprapubic tenderness to palpation. No Fisher catheter in place. No CVA t enderness. EXTREMITIES: Patient with right knee swelling and well-healed multiple midline surgical scars in the knee. No tenderness to palpation. The patient without any peripheral or lower extremit y swelling. 1+ pedal pulses bilaterally and symmetric. Strength grossly normal. Patient sits up in dependently. NEURO: Grossly nonfocal. No facial drooping. Strength as noted above. PSYCH: Thoug ht process content and questions are all appropriate. Patient is pleasant and cooperative. LABORATORY STUDIES: WBC 6.13, H and H 14.4 and 42.3, MCV of 93.6, platelet count is 199. No bands. PT is 12.5, INR 0.91, PTT is 27.9. D-dimer is 1.07. Sodium is 138, potassium 4.3, chloride 107, CO 2 is 22, anion gap 9, BUN 21, creatinine 0.8, GFR greater than 60, glucose 136, calcium 9.1, magnesiu m 2.0, total bilirubin 0.9, conjugated 0.3, ALT is 36, AST is 27, alkaline phosphatase is 61. Initia l troponin 0.04, repeated 0.11 which is elevated. BNP is 73. Total protein 6.3, albumin 3.9, lipase is 59. Initial EKG with normal sinus rhythm in the 70s. QTc is 440. Patient with notable Q-waves in the in ferior leads. Less than [address]-depression in the lateral leads. No acute ST elevations. T-wave in version in lead III. Repeat EKG in the emergency department is normal sinus rhythm in the 70s. 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 No acute ST changes. Resolution of minimal ST depression in the lateral leads. [place], it looks like 1st-degree AV block. QTc is 446. EKG #3 in the emergency department is n ormal sinus rhythm in the rate of 60s, prolonged [place] interval. Q-waves in the inferior leads persiste nt. No other acute ST changes. T-wave inversion in lead III is resolved and flattened. Chest x-ray image, reviewed myself, report is pending. A little bit of perihilar prominence, otherwi se unremarkable, and elevation of right hemidiaphragm, otherwise no acute findings. CTA of the chest, image and report reviewed, negative for PE. Coronary atherosclerosis is noted. In determinate 3 mm anterior left upper lobe nodule. Recommend 1 year followup. Degenerative changes o f the spine. Scattered scarring atelectasis present and elevation of the right hemidiaphragm and dayanara nt attrition at the posterior right hemidiaphragm. Heart size is normal. ASSESSMENT AND PLAN: This is a very pleasant 78-year-old gentleman with past medical history signifi cant for HTN, Lambert's, DM2, polymyalgia rheumatica previously on chronic steroids, BPH, chronic wilver n, osteoarthritis who presents to the emergency department today with complaints of new onset chest p ain. 1. Kaa-IC-iubxmaacl myocardial infarction (NSTEMI). The patient with changes on EKG impro nohelia after nitroglycerin. Secondary point of care troponin is elevated. Patient has been started on heparin drip and nitroglycerin drip due to recurrence of his chest pain and now has been without ches t pain since arrival to the floor. We will plan to continue both drips as noted above. Cardiology w as consulted from the emergency department. We will plan to see the patient this morning anticipatin g catheterization. He has been made n.p.o. 2. Chest pain. Resolved currently with nitroglycerin drip in place as noted above. Serial enzymes and cardiac consult as noted above. 3. Chronic medical issues. 4. Benign essential hypertension. Blood pressures are acceptable at this time. Plan to resume the patient's home medications once his diet is advanced including his losartan and metoprolol. 5. Diabetes, type 2. Patient reports that his sugars have significantly improved and notes that he is in the prediabetic range. Holding metformin. The patient will be n.p.o. Accu-Cheks and low-dose sliding scale if blood sugar should rise. 6. Gout. Continue allopurinol. 7. Benign prostatic hypertrophy (BPH). Resume tamsulosin. 8. Polymyalgia rheumatica. Patient no longer on steroid therapy. Supportive care. 9. Chronic pain. P.r.n. medications available. 10. Fluids, electrolytes, and nutrition. Gentle IV fluid hydration. ips in place as noted above. Electrolytes adequate, do not require replacement. Patient currently n.p.o. Cardiac low carb diet once diet is advanced. 11. Prophylaxis. Heparin drip. 12. Code status is full. DISPOSITION: Patient admitted to inpatient status on the PCU floor. [facility] [place] with likely need for further cardiac monitoring after his catheterization and poss ible intervention. /[id number]/MODL
--- NOTE | 2018-11-14 07:57 | PDMN ---
Medical Necessity Medical necessity: McG: M230 SC-2 days : NSTEMI
[2018-11-14 08:32] LABS: PLATELET COUNT 175 10^3/uL (150-400)
[2018-11-14 08:46] LABS: CREATINE KINASE 106 IU/L (0-224)
--- NOTE | 2018-11-14 09:58 | HOSPPROG ---
Hospitalist Progress Note Assessment/Plan: DIAGNOSES: * NSTEMI * CAD seen on CT of chest * 3 mm lung nodule indeterminate seen on CT chest * HTN * diabetes * family history of heart disease including coronary disease * chronic pain from PMR and gout PLANS: * to be seen by cardiology for consideration of angiography, NPO at this time * continue ASA and heparin for now * hold metformen due to IV contrast * continue other meds * lipid check and start statin SUBJECTIVE: Feels better with resolution of his angina symptoms No nausea Hungry, no shortness of breath OBJECTIVE Vitals reviewed: All stable without fever 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 The patient does have extensive coronary calcifications and multiple vessels. Otherwise there are no acute cardiac or pulmonary abnormalities, no evidence of PE Objective: Vital Signs Temp Pulse Resp BP Pulse Ox 37.8 C 60 11 L 122/66 H 95 11/14/18 03:10 11/14/18 07:17 11/14/18 07:17 11/14/18 07:17 11/14/18 07:17 Laboratory Results 11/14/18 08:10 11/14/18 08:10 11/13/18 11/14/18 11/15/18 06:59 06:59 06:59 Intake Total 1383 Balance 1383 PT 12.5 SEC (12.0-15.0) 11/13/18 23:00 INR 0.91 (0.83-1.16) 11/13/18 23:00 - Time Spent With Patient Time Spent with Patient: greater than 35 minutes Time Spent with Patient: Greater than 35 minutes spent on this patients care, greater than 50% of time spent counseling, educating, and coordinating care regarding the above mentioned plan. ICD10 Worksheet Patient Problems: Problems Problem Status Onset Chest pain Acute NSTEMI (non-ST elevation myocardial infarction) Acute
--- NOTE | 2018-11-14 10:18 | GHP ---
DATE OF ADMISSION: 11/14/2018 REASON: Chest pain. HISTORY OF PRESENT ILLNESS: This is a 78-year-old gentleman with no known history of coronary diseas e who is active in his daily life without any issues. Within the last year, he had knee surgery with out any cardiac issues as well. He has risk factors of hypertension and diabetes on metformin. He a lso has history of polymyalgia rheumatic on chronic steroids which was recently discontinued and hist ory of Lambert's esophagus. Last evening, after dinner, he started experiencing some "heartburn" whi ch was different than his usual Lambert's esophagus. He was able to drive home from [employer] . There was no associated nausea, vomiting, or diaphoresis. He got home and the pain became quite s harp and tense. He called 9-1-1. He did take a Tums with home with some relief. In the emergency r oom, he got relief with nitroglycerin as well. The pain returned and he was placed on nitroglycerin drip. His cardiac enzymes were 0.04 and 0.11. His EKG is normal with nonsignificant changes in lead III. He had a normal BNP. He is seen now resting comfortably in bed. He is in normal rhythm. In speaking to him and confirmed by his , he has had no fever, chills, nausea, vomiting, or other is sues. He has been active in daily life without any ongoing pains or issues. On the CT scan yesterda y, he had noted coronary calcifications but no pulmonary emboli. Long discussion regarding our optio ns. At this point, we will plan the following. Echocardiogram will be obtained. If the patient has normal wall motion without ischemic wall motion abnormality, we will perform a nuclear stress test f or further noninvasive evaluation. If his echocardiogram shows regional wall motion abnormality, car diac catheterization can be considered. He is on metformin. I would like to hold metformin prior to any nonurgent catheterization. This was discussed with the family, they understand. PAST MEDICAL HISTORY: 1. Type 2 diabetes treated with metformin for at least 10 years. 2. Hypertension on metoprolol/losartan. 3. 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 4. History of polymyalgia rheumatica with chronic steroids recently discontinued. REVIEW OF SYSTEMS: Negative for any GI, , blood loss, any neurologic issues, any ACS exercise symp tomatology such as shortness of breath, pedal edema, PND, orthopnea, or chest pain. ALLERGIES: Accupril. PAST SURGICAL HISTORY: Total knee surgery in March of 2018. FAMILY HISTORY: Noncontributory. SOCIAL HISTORY: . Remote cigarettes. No alcohol abuse or illicit drugs. EXAM: VITAL SIGNS: Blood pressure is 122/66. Heart rate is 60s, 95% on room air. GENERAL: The pa tient seems comfortable in bed. MOUTH: Oropharynx moist. NECK: Supple. LUNGS: Clear to ausculta tion. CARDIOVASCULAR: Regular rate and rhythm with a soft systolic murmur. No JVD. GI: Abdomen s oft, nontender. MUSCULOSKELETAL: No signs of clubbing or edema. Pulses are 2+ in the periphery, de creased pedal. ASSESSMENT: 1. Chest pain of unclear etiology. Patient has known coronary calcification by CT scan, but also ramos s significant GI history with Lambert's esophagus and recent use of steroids for polymyalgia. Pain i s resolved at this point. His BMP is normal. His cardiac enzymes are low, and his EKG shows no acut e ST-T wave changes. The patient is on metformin and pain-free at this point. We will obtain echoca rdiogram if there are marked abnormalities with prior progressive coronary angiogram. If not, nuclea r stress test will be performed. I would like to hold his metformin in a nonurgent situation prior t o catheterization. This was all discussed with the family, they understand and questions answered. 2. History of diabetes mellitus with normal renal function on metformin. 3. History of Lambert's esophagus on H2 cally. Further care depending on results of the above tests. /[id number]/MODL
--- NOTE | 2018-11-14 10:22 | PDHPUP ---
History & Physical Update H&P update statement: This history and physical update is based on an assessment of the patient which was completed after admission or registration (within 24 hours), but prior to the surgery/procedure. H&P update: H&P reviewed & patient examined (no changes from earlier today) H&P changes: After read discussing the options with the patient and his we have decided to progress with coronary angiogram today. The relative procedure risks benefits complications alternatives were discussed with him the understands accepts and wishes to proceed. He has not had metformin 24 hr. He is pain-free. He understands increased risk of renal insufficiency with his diabetes. He will we also discussed the possibility of PCI if need be and has agreed to that as well. Given the at risk.
--- NOTE | 2018-11-14 10:57 | ECHO ---
[email or web address] [address] [address] Main: [phone] Fax: Transthoracic Echocardiogram Name: ISABEL BRITT MR#: [id number] Study Date: 11/14/2018 Study Time: 09:32 AM Date of : 1940 Age: 78 year(s) Height: 175.3 cm (69 in.) Weight: 81.65 kg (180 lb.) BSA: 1.98 m2 Gender: Male Examination: Echo Indication: rule out wma Image Quality: Adequate Contrast: Requested by: Nicole Wolfe BP: 122 mmHg/66 mmHg Heart Rate: Rhythm: Indication: rule out wma Procedure Staff Electrical Systems Drafter: Melanie Ahuja RDCS Reading Physician: Leonila Borden MD Requesting Provider: Conclusions: Normal size left ventricle. Asymmetrical septal LV hypertrophy. Normal global systolic LV function. EF is 64 %. No regional wall motion abnormality. Grade 2 diastolic dysfunction (pseudonormalized LV filling pattern). Upper normal size right ventricle. Normal RV function. Mild mitral valve regurgitation is present. Mild aortic valve regurgitation is present. Moderate tricuspid regurgitation is present. Right ventricular systolic pressure measures 53mmHg. There is no previous echocardiogram for comparison. Measurements: Chambers Valvular Assessment AV/MV Valvular Assessment TV/PV Normal Normal Normal Name Value Range Name Value Range Name Value Range Ao Kaykay (2D): 3.4 cm (1.4 cm-2.6 AV Vmax: 1.39 m/s (1 m/s-1.7 TR Vmax: 3.46 mm/s ( - ) cm) m/s) TR PGmax: 48 mmHg ( - ) IVSd (2D): 1.3 cm (0.6 cm-1.1 AV maxP mmHg ( - ) syst. PAP: 53 mmHg ( - ) cm) AV meanP mmHg ( - ) PV Vmax: 0.88 m/s (0.6 m/s-0.9 LVDd (2D): 4.3 cm (4.2 cm-5.9 JUAN JOSE (VTI): 2.5 cm ( - ) m/s) cm) MV E Vmax: 0.85 m/s ( - ) PV PGmax: 3 mmHg ( - ) LVDs (2D): 2.3 cm (2.1 cm-4 MV A Vmax: 0.66 m/s ( - ) cm) MV E/A: 1.29 ( - ) LVPWd (2D): 1.1 cm (0.6 cm-1 cm) MV PHT: 0.071 s ( - ) LVOTd 2.2 cm 2.2 cm mm MVA (PHT): 3.1 s ( - ) LVEF (BP): 64 % (>=55 %) Patient: ISABEL BRITT Study Date: 11/14/2018 Page 1 of 09:32 AM RVDd(2D): 3.8 cm (1.9 cm-3.8 cmmm) Continued Measurements: Chambers Valvular Assessment AV/MV Valvular Assessment TV/PV Name Value Name Value Name Value LADs: 3.5 cm MV DecTime: 229 m/s CVP (est.): 5 mmHg LADs Lon.8 cm MV E' Septal: 0.07 m/s LA Area: 18.2 cm2 MV E/E' Septal: 11.80 LA Volume: 43 ml MV E/E' Lateral: 8.20 LA Volume Index: 21.7 ml/m2 RA Area: 16.2 cm2 Additional Vessels Name Value Ao Ascendin.2 cm Inferior Vena Cava: 2.1 cm Findings: Left Ventricle: Normal size left ventricle. Asymmetrical septal LV hypertrophy. Normal global systolic LV function. EF is 64 %. No regional wall motion abnormality. Grade 2 diastolic dysfunction (pseudonormalized LV filling pattern). Right Ventricle: Upper normal size right ventricle. Normal RV function. Left Atrium: The left atrium is normal in size. Right Atrium: The right atrium is normal in size. Mitral Valve: The mitral valve is normal in appearance and function. Mild mitral valve regurgitation is present. No mitral stenosis is present. Aortic Valve: The aortic valve is tri-leaflet. Mild aortic valve regurgitation is present. No aortic valve stenosis is present. Tricuspid Valve: The tricuspid valve is normal in appearance and function. Moderate tricuspid regurgitation is present. The pulmonary artery pressure is moderately increased. Right ventricular systolic pressure measures 53mmHg. Pulmonic Valve: The pulmonic valve is normal in appearance and function. Trivial pulmonic valve regurgitation. Aorta: The aorta is normal. Normal size aortic root measuring 3.4 cm. Normal size ascending aorta measuring 3.2 cm. IVC: The IVC is normal sized. Pericardium: No pericardial effusion. There is pericardial fat. No pleural effusion. (No Signature Object) Patient: ISABEL BRITT Study Date: 11/14/2018 Page 2 of 2 09:32 AM [id number]
[2018-11-14] MEDS ORDERED: LIDOCAINE 1% 300 MG/30 ML SDV ONE (11:00)
[2018-11-14] MEDS ORDERED: MIDAZOLAM 2 MG/2 ML VIAL ONE (11:01)
[2018-11-14] MEDS ORDERED: IOPAMIDOL (ISOVUE-370) 150 ML BTL IV ONE (11:01)
[2018-11-14] MEDS ORDERED: fentaNYL 100 MCG/2 ML INJ ONE (11:01)
--- NOTE | 2018-11-14 11:27 | PDPROPOC ---
Sedation Plan of Care ASA Classification: ASA 3 Planned drugs: fentanyl, midazolam Mallampati Score: Class 3 (no airwayobstruction normal breathing and speech) Mallampati Reference Image: Patient passed 3-3-2 rule?: Yes
[2018-11-14] MEDS ORDERED: ASPIRIN 325 MG TAB ONE (11:31)
[2018-11-14] MEDS ORDERED: FAMOTIDINE 20 MG/NACL/50 ML BAG IV ONE (11:31)
--- NOTE | 2018-11-14 11:52 | PDDXCAT ---
Diagnostic Cath Note - . Date: 11/14/18 Ice Skater: Howie Indication: Patient w angina/susp CAD, cannot be risk stratified by other means - Procedure Access: right groin Procedure: left heart catheterization, coronary angiography, left ventriculogram - Materials Left Heart Cath size: 6F Left Heart Cath materials: standard multipack (JL4, JR4, pigtail) - Findings-Left Heart Catheterization LM: 1. normal LAD: 1. prox 50%-60% LCX: 1. mid 99% RCA: 1. prox 60% LVEF: 65%.. Wall motion: 1. normal wall motion Complications: none Estimated blood loss: <50ml Assessment: 1. 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 normal lvef. will get interventiional consult/ imput Plan: 1. interventional consult for options Patient Problems: Problems Problem Status Onset Chest pain Acute NSTEMI (non-ST elevation myocardial infarction) Acute
[2018-11-14] MEDS ORDERED: HEPARIN 10,000 UNIT/10 ML MDV (1,000 UNIT/ML) ONE (12:03)
[2018-11-14] MEDS ORDERED: NITROGLYCERIN 1,500 MCG/15 ML VIAL MISC ONE ×2 (12:13→12:16)
[2018-11-14] MEDS ORDERED: CLOPIDOGREL BISULFATE 75 MG TAB ONE (12:17)
[2018-11-14] MEDS ORDERED: CLOPIDOGREL BISULFATE 75 MG TAB PO ONE (12:27)
--- NOTE | 2018-11-14 12:36 | PDCTREPORT ---
Cardiothoracic Procedure Rpt Cardiothoracic Procedure Report: Procedure: PCI of the circumflex. After reviewing the diagnostic procedure performed by my partner Dr. Denise, it was elected to proceed with urgent PCI. Patient was anticoagulated with heparin. A 6 cymro EBU 3.75 guiding catheter was used to intubate the left main coronary artery. A 0.014 luge wire was used to cross the stenosis and placed in the distal vessel. The stenosis was pre-dilated with a 2 mm balloon. A 3.5 by 20 mm Synergy was placed across the stenosis. It was deployed with two inflations one at 13 the second at 15 josias. Repeat angiogram revealed KHALIF 1-2 flow. He was administered ic nitroglycerin. ACT was confirmed. Final angiograms revealed KHALIF 3 flow. He was loaded with plavix. He is taken to recovery for continued care. Conclusion: Successful PCI of the circumflex with a 3.5 by 20 mm Synergy Stent. Patient Problems: Problems Problem Status Onset Chest pain Acute NSTEMI (non-ST elevation myocardial infarction) Acute
[2018-11-14] MEDS ORDERED: NITROGLYCERIN 0.4 MG BTL SL ONE (12:52)
--- NOTE | 2018-11-14 13:05 | ASMTCMCOM ---
CM Note CM Note Notes: Patient admitted with chest pain that did not resolve w GI cocktail in ED. Per cardiology eval, he will be taken to [facility] for angiography today. Patient is normally independent and lives with . No therapies ordered, so I anticipate an independent discharge. CM available if needs arise. Date Signed: 11/14/2018 11:27 AM Electronically Signed By:Lupis Rodriges RN
--- NOTE | 2018-11-14 17:23 | CPEKG ---
Test Reason : OPEN Blood Pressure : / mmHG Vent. Rate : 046 BPM Atrial Rate : 046 BPM P-R Int : 172 ms QRS Dur : 089 ms QT Int : 469 ms P-R-T Axes : -03 -04 038 degrees QTc Int : 411 ms Sinus bradycardia Inferior infarct, old Confirmed by Lusi London ([id number]) on 11/14/2018 5:22:36 PM Referred By: Confirmed By:Luis London
[2018-11-15 04:21] LABS: PLATELET COUNT 175 10^3/uL (150-400)
[2018-11-15] MEDS ORDERED: METOPROLOL SUCCINATE XR 100 MG TAB PO SCH (09:00)
[2018-11-15] MEDS ORDERED: CLOPIDOGREL BISULFATE 75 MG TAB PO SCH (09:00)
[2018-11-15] MEDS ORDERED: PANTOPRAZOLE SODIUM 40 MG TAB PO SCH (09:00)
[2018-11-15] MEDS ORDERED: TAMSULOSIN HCL 0.4 MG CAP PO SCH (09:00)
[2018-11-15] MEDS ORDERED: ASPIRIN EC 325 MG TAB PO SCH (09:00)
[2018-11-15] MEDS ORDERED: ROSUVASTATIN CALCIUM 10 MG TAB PO SCH (09:00)
[2018-11-15] MEDS ORDERED: LOSARTAN POTASSIUM 50 MG TAB PO SCH (09:00)
[2018-11-15] MEDS ORDERED: CHOLECALCIFEROL VIT D3 1,000 UNITS TAB PO SCH (09:00)
[2018-11-15] MEDS ORDERED: ALLOPURINOL 300 MG TAB PO SCH (09:00)
--- NOTE | 2018-11-15 09:41 | PDCARPN ---
Cardiology Progress Note Chief Complaint: ACS/NSTEMI Assessment/Plan: Assessment: 78M PMH htn, prediabetes, admitted with NSTEMI as evidenced by Tn to 0.7 and unstable angina. S/p PCI to mLCx for 99% stenosis. #. NSTEMI: 99% blockage in mCx s/p PCI DAPT x 1 year #. htn: BP still not under good control pt counseled on BID BP monitoring continue Losartan and Metoprolol for now Bring BP monitor and log to next OV #. dyslipidemia: started on Rosuvastatin will need lipids in 3 months #. prediabetes: hold Metformin 48 hours post-PCI #. PHTN: ? untreated sleep apnea will consider outpatient sleep study #. VHD: mild MR/AR, mod TR will follow #. CAD: mod residual disease if return of more pain, pt may need MPI in outpatient setting #. lung nodule: [address] in 1 year Plan: OK to d/c from cardiac perspective 11/15/18 09:43 Subjective: Slight pain yesterday after dinner. No dyspnea, pnd/orthopnea. Reviewed/Discussed With: hospitalist (Dr. Montejo) Objective: Vital Signs (8 Hrs) Temp Pulse Resp BP Pulse Ox 11/15/18 07:40 98.4 F 67 19 145/90 H 93 11/15/18 05:50 98.6 F 84 16 145/81 H 95 Intake/Output (24 Hrs) 11/14/18 11/15/18 11/16/18 05:59 05:59 05:59 Intake Total 1383 1904 Output Total 600 Balance 1383 1304 Intake: Oral (ml) 370 IV Intake (ml) 934 IV Infused (ml) 1383 600 Heparin/Dextrose 500 ml @ 98 Per Protocol IV CONT DARRICK Rx#:[id number] Ns 1,000 ml @ 75 mls/hr 285 600 IV CONT DARRICK Rx#: [id number] Output: Urine (ml) 600 Urinal 600 Estimated Blood Loss (ml) 0 Other: Weight 81 kg 79.016 kg Number of Voids 1 Toilet 1 Result Diagrams: 11/15/18 03:25 11/15/18 03:25 Cardiac Labs: Cardiac Lab Results (72 Hrs) 11/14/18 08:10 CK-MB (CK-2) Fraction 6.05 H Troponin I 0.701 H EKG: Sr, 1st deg AVB, CHOCO Telemetry: reviewed/ SR Echocardiogram: reviewed - Physical Exam Constitutional: healthy appearing, no apparent distress Eyes: anicteric sclera Ears, Nose, Mouth, Throat: moist mucous membranes, no oral ulcers Cardiovascular: regular rate and rhythm, no murmurs Peripheral Pulses: 2+: femoral (R) Respiratory: clear to auscultate bilat Gastrointestinal: normoactive bowel sounds Genitourinary: No castro in urethra Skin: no rashes, no abrasions Neurologic: AAOx3 Psychiatric: cooperative, interactive ICD10 Worksheet Patient Problems: Problems Problem Status Onset Chest pain Acute NSTEMI (non-ST elevation myocardial infarction) Acute
[2018-11-15 11:12] VITALS: BP 122/77
--- NOTE | 2018-11-15 11:39 | PDDCSUM ---
Discharge Summary Discharge Summary: DISCHARGE DIAGNOSES: * acute NSTEMI * CAD with a 99% stenosis of the mid circumflex which was stented, as well as 50 -60% in the right and left anterior coronaries * preserved LVEF * excellent cholesterol with LDL in 60s CONSULTANTS: Dr. Jorge Emmanuel treat he 0 PROCEDURES: Coronary angiography Drug-eluting stent to left circumflex coronary HOSPITAL COURSE SUMMARY: This patient with cardiac risk factors came to the ER after an episode of chest pain that was suggestive of angina. In the ER he had had a CT scan of the chest done that showed extensive calcific coronary atherosclerosis. He did have a troponin elevation to 0.[address] elevations. There was no heart failure and no arrhythmia and his vital signs were stable. The patient went to coronary angiography where he was found to have 99% mid circumflex lesion which was stented. He also has 50-60% stenosis of the right and left anterior coronaries but his ventricle is good. He tolerated the procedure well and there were no signs of any complications. At this point he stable for discharge. He understands that he needs to take Plavix daily for likely 12 months, and that he needs to stay on Crestor and continue a baby aspirin daily. He will [facility] up at [facility] in the coming week. He is very motivated to take on all of the preventive measures that he can PENDING TEST RESULTS: None MEDICATION CHANGES: Addition of Plavix daily, as well as Crestor FOLLOW-UP PLAN: In Cardiology Clinic in 1 week Greater than 35 minutes bedside and care coordination time today
--- NOTE | 2018-11-15 14:23 | ASMTLACE ---
LACE Length of stay for Answers: 1 day current admission Acuity / Level of Answers: Yes Care: Did the patient have an inpatient admission? Comorbidities - select Answers: Diabetes (uncontrolled or all that apply controlled) Other Notes: HTN # of Emergency department Answers: 1-2 visits in the last 6 months Score: 7 Date Signed: 11/15/2018 11:50 AM Electronically Signed By:Lupis Rodriges RN
--- NOTE | 2018-11-16 06:07 | CPEKG ---
Test Reason : OPEN Blood Pressure : / mmHG Vent. Rate : 062 BPM Atrial Rate : 061 BPM P-R Int : 201 ms QRS Dur : 085 ms QT Int : 397 ms P-R-T Axes : 015 -08 032 degrees QTc Int : 404 ms Sinus rhythm Inferior infarct, old Confirmed by Cholo Bourgeois ([id number]) on 11/16/2018 6:07:04 AM Referred By: Confirmed By:Cholo Bourgeois
--- NOTE | 2018-11-16 06:10 | CPEKG ---
Test Reason : OPEN Blood Pressure : / mmHG Vent. Rate : 065 BPM Atrial Rate : 065 BPM P-R Int : 212 ms QRS Dur : 086 ms QT Int : 413 ms P-R-T Axes : 036 -10 006 degrees QTc Int : 430 ms Sinus rhythm Abnormal R-wave progression, early transition consistent with posterior infarct. Inferior infarct, old Confirmed by Cholo Bourgeois ([id number]) on 11/16/2018 6:10:32 AM Referred By: Confirmed By:Cholo Bourgeois
== END 2018-11-15 11:56 | disposition home or self-care (01) | DRG 247 ==
LOC: EDUNIT# → F2W 11-14 03:02
PROVIDERS: ADMIT Family Medicine; ATTEND Family Medicine
PROC: B2111ZZ Fluoroscopy of Multiple Coronary Arteries using Low Osmolar Contrast (ICD-10-PCS; principal; 2018-11-14 12:41)
PROC: 027034Z Dilation of Coronary Artery, One Artery with Drug-eluting Intraluminal Device, Percutaneous Approach (ICD-10-PCS; principal; 2018-11-14 12:41)
PROC: 4A023N7 Measurement of Cardiac Sampling and Pressure, Left Heart, Percutaneous Approach (ICD-10-PCS; principal; 2018-11-14 12:41)
PROC: B2151ZZ Fluoroscopy of Left Heart using Low Osmolar Contrast (ICD-10-PCS; principal; 2018-11-14 12:41)
DX: I21.4 Non-ST elevation (NSTEMI) myocardial infarction (principal); I25.10 Atherosclerotic heart disease of native coronary artery without angina pectoris; I10 Essential (primary) hypertension; I27.20 Pulmonary hypertension, unspecified; E11.9 Type 2 diabetes mellitus without complications; Z79.84 Long term (current) use of oral hypoglycemic drugs; R91.1 Solitary pulmonary nodule; Z87.891 Personal history of nicotine dependence; K22.70 Barrett's esophagus without dysplasia; G89.29 Other chronic pain; M35.3 Polymyalgia rheumatica; M10.9 Gout, unspecified; N40.0 Benign prostatic hyperplasia without lower urinary tract symptoms
CPT/HCPCS: 84484-PO; 85520-90; 96365; C1725; C1760; C1769; C1874; C1887; C9600; J1644; J2250; J2270; J2405; J3010; Q9967

== ENCOUNTER → 2019-04-06 | Outpatient (CLI) | payer OTHER | LOC: BMCIMAGING 13:31 | PROVIDERS: ATTEND Orthopaedic Surgery | DX: Z47.1 Aftercare following joint replacement surgery (principal); Z96.651 Presence of right artificial knee joint ==